=== PATIENT | male | born 1965 | race Caucasian/White ===

== ENCOUNTER 2017-11-30 10:31 | Emergency (ER) | payer SELFPAY | END 2017-11-30 13:31 | disposition left against medical advice (07) | LOC: FTE 10:31 | DX: Z53.21 Procedure and treatment not carried out due to patient leaving prior to being seen by health care provider (principal) ==

== ENCOUNTER 2017-12-02 18:21 | Emergency (ER) | payer BC ==
[2017-12-02] MEDS: ACETAMINOPHEN 325 MG TAB PO (23:11)
[2017-12-02] MEDS: SOD CHLORIDE 0.9% 1,000 ML IV ×2 (23:11→23:49)
[2017-12-02 23:14] LABS: ADD MAN DIFF? NO
[2017-12-02 23:16] LABS: WHITE BLOOD COUNT 6.3 10^3/ul (4.8-10.8)
[2017-12-02 23:16] LABS: BASOPHIL # 0.1 10^3/ul (0.0-0.1); BASOPHILS % 0.8 % (0.0-2.0); EOSINOPHILS # 0.1 10^3/ul (0.0-0.5); EOSINOPHILS % 1.9 % (0.0-7.0); HEMATOCRIT 42.2 % (42.0-52.0); LYMPHOCYTES # 1.8 10^3/ul (0.8-2.9); LYMPHOCYTES % 28.3 % (15.0-51.0); MEAN CORPUSCULAR HEMOGLOBIN 29.6 pg (29.0-33.0); MEAN CORPUSCULAR HGB CONC 35.5 g/dl (32.0-37.0); MEAN CORPUSCULAR VOLUME 83.4 fl (82.0-101.0); MEAN PLATELET VOLUME 10.3 fl (7.4-10.4); MONOCYTE # 0.5 10^3/ul (0.3-0.9); MONOCYTES % 8.1 % (0.0-11.0); NEUTROPHIL # 3.8 10^3/ul (1.6-7.5); NEUTROPHILS % 59.8 % (39.0-77.0); PLATELET COUNT 364 10^3/UL (140-415); RED BLOOD COUNT 5.06 10^6/ul (4.70-6.10); RED CELL DISTRIBUTION WIDTH 11.7 % (11.5-14.5)
[2017-12-02 23:33] LABS: ALANINE AMINOTRANSFERASE 24 IU/L (13-69); ALBUMIN 3.9 g/dl (3.3-4.9); ALBUMIN/GLOBULIN RATIO 1.08; ALKALINE PHOSPHATASE 147 IU/L (42-121); ANION GAP 16 (8-16); ASPARTATE AMINO TRANSFERASE 18 IU/L (15-46); BILIRUBIN,INDIRECT 0.1 mg/dl (0-1.1); BILIRUBIN,TOTAL 0.1 mg/dl (0.2-1.3); BLOOD UREA NITROGEN 14 mg/dl (7-20); CALCIUM 9.1 mg/dl (8.4-10.2); CARBON DIOXIDE 27 mmol/L (21-31); CHLORIDE 101 mmol/L (97-110); CREATININE 0.71 mg/dl (0.61-1.24); GLUCOSE 333 mg/dl (70-220); POTASSIUM 4.2 mmol/L (3.5-5.1); SODIUM 140 mmol/L (135-144); TOTAL PROTEIN 7.5 g/dl (6.1-8.1)
[2017-12-02 23:35] LABS: C-REACTIVE PROTEIN 0.7 mg/dl (0.0-0.9)
[2017-12-02 23:35] LABS: INR 0.84; PROTIME 11.6 Sec (11.9-14.9); PT RATIO 0.9
[2017-12-02 23:36] LABS: PARTIAL THROMBOPLASTIN TIME 27.9 Sec (25.0-35.0)
[2017-12-03 00:52] LABS: ERYTHROCYTE SEDIMENTATION RATE 70 mm/Hr (0-20)
[2017-12-03] MEDS: CEFEPIME 1GM/50 ML (PMX) 50 ML IVPB (03:00)
[2017-12-03] MEDS: VANCOMYCIN 1 GM (PMX) 250 ML IVPB (03:50)
[2017-12-03] MEDS: morphine 4 MG/ML VIAL IV (05:21)
== END 2017-12-03 14:08 | disposition short-term general hospital (02) ==
LOC: FTE 18:21 → E/R 12-03 14:08
DX: M86.9 Osteomyelitis, unspecified (principal); L03.011 Cellulitis of right finger; E11.65 Type 2 diabetes mellitus with hyperglycemia; X58.XXXA Exposure to other specified factors, initial encounter; Y92.9 Unspecified place or not applicable; Z79.4 Long term (current) use of insulin
CPT/HCPCS: 36415; 73130-RT; 80053; 82962; 85025; 85610; 85651; 85730; 86140; 87040; 96374; 96375; 99285-25